=== PATIENT | female | born 1985 ===

== ENCOUNTER 2023-05-04 11:28 | Emergency (ER) | payer OTHER ==
[2023-05-04 13:19] LABS: Appearance,Urine Cloudy (Clear); Bilirubin,Urine 1+ (Negative); Blood,Urine Large (Negative); Color,Urine Dark Brown; Glucose,Urine (UA) Negative (Negative); Ketones,Urine 2+ (Negative); Leukocyte Esterase,Urine Negative (Negative); Mucus,Urine Few /hpf; Nitrite,Urine Positive (Negative); Protein,Urine 2+ (Negative); RBC,Urine >182 /hpf (0-5); Specific Gravity,Urine 1.025 (1.001-1.035); Squamous Epithelial Cell,Urine 7 /hpf (0-4); WBC,Urine 33 /hpf (0-5)
[2023-05-04 13:33] VITALS: RESP 18
[2023-05-04] MEDS ORDERED: SODIUM CHLORIDE 0.9% 1,000 ML IV ONE (13:57)
[2023-05-04] MEDS ORDERED: LEVOFLOXACIN 500MG-D5W PMX 500 MG in DEXTROSE/WATER 1 100ML.BAG IVPB STA (13:58)
--- NOTE | 2023-05-04 14:22 | ED ---
General Adult HPI - General Source: patient, RN notes reviewed, old records reviewed Mode of arrival: ambulatory Limitations: no limitations <Denny Green - Last Filed: 05/04/23 14:11> <Joey Mccoy - Last Filed: 05/04/23 19:52> - General Chief complaint: Urogenital Stated complaint: UTI Time Seen by Provider: 05/04/23 13:23 - History of Present Illness Initial comments: 38-year-old female presenting for evaluation of lower abdominal pain and dysuria. Patient is status post uterine artery embolization at [facility] in [place] for fibroid. She denies vaginal discharge per she's had minimal vaginal bleeding which she states is improving. She's had diffuse lower abdominal pain over the past several days as well as chills. (Denny Green) - Related Data Previous Rx's Medication Instructions Recorded Levofloxacin [Levaquin] 500 mg PO DAILY 1 Days #7 tab 05/04/23 Allergies Allergy/AdvReac Type Severity Reaction Status Date / Time cefazolin [From [facility]] Allergy Chest Pain Verified 05/04/23 12:18 Review of Systems ROS Other: All systems not noted in ROS Statement are negative. <Denny Green - Last Filed: 05/04/23 14:11> ROS Other: All systems not noted in ROS Statement are negative. <Joey Mccoy - Last Filed: 05/04/23 19:52> ROS Statement: Those systems with pertinent positive or pertinent negative responses have been documented in the HPI. Past Medical History Past Medical History: Hyperlipidemia Additional Past Medical History / Comment(s): fibroids History of Any Multi-Drug Resistant Organisms: None Reported Past Surgical History: Appendectomy, Uterine Ablation Past Psychological History: No Psychological Hx Reported Smoking Status: Never smoker Past Alcohol Use History: None Reported Past Drug Use History: None Reported <Denny Green - Last Filed: 05/04/23 14:11> General Exam Limitations: no limitations General appearance: alert, in no apparent distress Head exam: Present: atraumatic, normocephalic Eye exam: Present: normal appearance, PERRL ENT exam: Present: normal exam Neck exam: Present: normal inspection. Absent: tenderness, meningismus Respiratory exam: Present: normal lung sounds bilaterally. Absent: respiratory distress, wheezes Cardiovascular Exam: Present: regular rate, normal rhythm GI/Abdominal exam: Present: soft, distended, tenderness (Diffuse lower abdominal tenderness) Extremities exam: Present: normal inspection, normal capillary refill. Absent: pedal edema Neurological exam: Present: alert, oriented X3, CN II-XII intact. Absent: motor sensory deficit Psychiatric exam: Present: normal affect, normal mood Skin exam: Present: warm, dry, intact. Absent: cyanosis, diaphoretic <Denny Green Uriel - Last Filed: 05/04/23 14:11> Course Vital Signs 05/04/23 05/04/23 05/04/23 12:12 13:32 14:46 Temperature 98.7 F 98.0 F Pulse Rate 99 88 70 Respiratory 20 18 18 Rate Blood Pressure 137/86 123/78 114/72 O2 Sat by Pulse 97 97 99 Oximetry Medical Decision Making <GregngayeseniaDenny Uriel - Last Filed: 05/04/23 14:11> - Lab Data Result diagrams: 05/04/23 14:34 05/04/23 14:34 <Joey Mccoy - Last Filed: 05/04/23 19:52> - Medical Decision Making Was pt. sent in by a medical professional or institution (JAYE Nava, SLAB LIFTING ENGINEER, urgent care, hospital, or usp...) When possible be specific @ -No Did you speak to anyone other than the patient for history (EMS, parent, family, police, friend...)? What history was obtained from this source @ -No Did you review nursing and triage notes (agree or disagree)? Why? @ -I reviewed and agree with nursing and triage notes Were old charts reviewed (outside hosp., previous admission, EMS record, old EKG , old radiological studies, urgent care reports/EKG's, usp records)? Report findings @ -No old charts were reviewed Differential Diagnosis (chest pain, altered mental status, abdominal pain women, abdominal pain men, vaginal bleeding, weakness, fever, dyspnea, syncope, headache, dizziness, GI bleed, back pain, seizure, CVA, palpatations, mental health, musculoskeletal)? @ -Differential Abdominal Pain Women: Appendicitis, Cholecystitis, diverticulosis, ischemic bowel, pancreatitis, hepatitis, UTI, gastroenteritis, AAA, incarcerated hernia, bowel obstruction, constipation, inflammatory bowel, hepatitis, peptic ulcer disease, splenic infarction, perforated viscus, vulvitis, ovarian torsion, PID, kidney stone, placenta abruption, this is not meant to be an all-inclusive list EKG interpreted by me (3pts min.). @ -As above X-rays interpreted by me (1pt min.). @ -None done CT interpreted by me (1pt min.). @ -[CT the abdomen and pelvis has been ordered, results pending U/S interpreted by me (1pt. min.). @ -None done What testing was considered but not performed or refused? (CT, X-rays, U/S, labs)? Why? @ -None What meds were considered but not given or refused? Why? @ -None Did you discuss the management of the patient with other professionals (professionals i.e. , PA, SLAB LIFTING ENGINEER, lab, RT, psych nurse, social psychologist, pad tufter, teacher, classifications officer cc/cm, case finishing machine adjuster)? Give summary @ -No Was smoking cessation discussed for >3mins.? @ -No Was critical care preformed (if so, how long)? @ -No Were there social determinants of health that impacted care today? How? (H omelessness, low income, unemployed, alcoholism, drug addiction, transportation, low edu. Level, literacy, decrease access to med. care, senior living, rehab)? @ -No Was there de-escalation of care discussed even if they declined (Discuss DNR or withdrawal of care, Hospice)? DNR status @ -No What co-morbidities impacted this encounter? (DM, HTN, Smoking, COPD, CAD, Cancer, CVA, ARF, Chemo, Hep., AIDS, mental health diagnosis, sleep apnea, morbid obesity)? @ -[Recent uterine artery embolization Was patient admitted / discharged? Hospital course, mention meds given and route, prescriptions, significant lab abnormalities, going to OR and other pertinent info. @ -Patient care signed out at shift change awaiting laboratory testing and CT imaging. Signed out to Dr. Mccoy ([facility] - Lab Data Lab Results 05/04/23 05/04/23 05/04/23 Range/Units 12:41 14:34 14:34 WBC 13.7 H (3.8-10.6) k/uL RBC 4.89 (3.80-5.40) m/uL Hgb 15.2 (11.4-16.0) gm/dL Hct 44.5 (34.0-46.0) % MCV 91.0 (80.0-100.0) fL MCH 31.2 (25.0-35.0) pg MCHC 34.2 (31.0-37.0) g/dL RDW 13.4 (11.5-15.5) % Plt Count 425 (150-450) k/uL MPV 8.0 Neutrophils % 76 % Lymphocytes % 16 % Monocytes % 4 % Eosinophils % 2 % Basophils % 0 % Neutrophils # 10.4 H (1.3-7.7) k/uL Lymphocytes # 2.2 (1.0-4.8) k/uL Monocytes # 0.6 (0-1.0) k/uL Eosinophils # 0.3 (0-0.7) k/uL Basophils # 0.0 (0-0.2) k/uL Sodium 137 (137-145) mmol/L Potassium 4.0 (3.5-5.1) mmol/L Chloride 102 (98-107) mmol/L Carbon Dioxide 23 (22-30) mmol/L Anion Gap 12 mmol/L BUN 10 (7-17) mg/dL Creatinine 0.64 (0.52-1.04) mg/dL Est GFR (CKD-EPI)AfAm >90 (>60 ml/min/1.73 sqM) Est GFR (CKD-EPI)NonAf >90 (>60 ml/min/1.73 sqM) Glucose 82 (74-99) mg/dL Plasma Lactic Acid Nicola (0.7-2.0) mmol/L Calcium 10.4 H (8.4-10.2) mg/dL Magnesium 2.1 (1.6-2.3) mg/dL Total Bilirubin 0.6 (0.2-1.3) mg/dL AST 49 H (14-36) U/L ALT 44 H (4-34) U/L Alkaline Phosphatase 142 H (38-126) U/L Total Protein 8.3 H (6.3-8.2) g/dL Albumin 4.5 (3.5-5.0) g/dL Urine Color Dark Brown Urine Appearance Cloudy H (Clear) Urine pH 6.0 (5.0-8.0) Ur Specific [place] 1.025 (1.001-1.035) Urine Protein 2+ H (Negative) Urine Glucose (UA) Negative (Negative) Urine Ketones 2+ H (Negative) Urine Blood Large H (Negative) Urine Nitrite Positive H (Negative) Urine Bilirubin 1+ H (Negative) Urine Urobilinogen 2.0 (<2.0) mg/dL Ur Leukocyte Esterase Negative (Negative) Urine RBC >182 H (0-5) /hpf Urine WBC 33 H (0-5) /hpf Ur Squamous Epith Cells 7 H (0-4) /hpf Urine Mucus Few H (None) /hpf 05/04/23 Range/Units 14:34 WBC (3.8-10.6) k/uL RBC (3.80-5.40) m/uL Hgb (11.4-16.0) gm/dL Hct (34.0-46.0) % MCV (80.0-100.0) fL MCH (25.0-35.0) pg MCHC (31.0-37.0) g/dL RDW (11.5-15.5) % Plt Count (150-450) k/uL MPV Neutrophils % % Lymphocytes % % Monocytes % % Eosinophils % % Basophils % % Neutrophils # (1.3-7.7) k/uL Lymphocytes # (1.0-4.8) k/uL Monocytes # (0-1.0) k/uL Eosinophils # (0-0.7) k/uL Basophils # (0-0.2) k/uL Sodium (137-145) mmol/L Potassium (3.5-5.1) mmol/L Chloride (98-107) mmol/L Carbon Dioxide (22-30) mmol/L Anion Gap mmol/L BUN (7-17) mg/dL Creatinine (0.52-1.04) mg/dL Est GFR (CKD-EPI)AfAm (>60 ml/min/1.73 sqM) Est GFR (CKD-EPI)NonAf (>60 ml/min/1.73 sqM) Glucose (74-99) mg/dL Plasma Lactic Acid Nicola 0.8 (0.7-2.0) mmol/L Calcium (8.4-10.2) mg/dL Magnesium (1.6-2.3) mg/dL Total Bilirubin (0.2-1.3) mg/dL AST (14-36) U/L ALT (4-34) U/L Alkaline Phosphatase (38-126) U/L Total Protein (6.3-8.2) g/dL Albumin (3.5-5.0) g/dL Urine Color Urine Appearance (Clear) Urine pH (5.0-8.0) Ur Specific [place] (1.001-1.035) Urine Protein (Negative) Urine Glucose (UA) (Negative) Urine Ketones (Negative) Urine Blood (Negative) Urine Nitrite (Negative) Urine Bilirubin (Negative) Urine Urobilinogen (<2.0) mg/dL Ur Leukocyte Esterase (Negative) Urine RBC (0-5) /hpf Urine WBC (0-5) /hpf Ur Squamous Epith Cells (0-4) /hpf Urine Mucus (None) /hpf Disposition <Denny Green - Last Filed: 05/04/23 14:11> Is patient prescribed a controlled substance at d/c from ED?: No <Joey Mccoy - Last Filed: 05/04/23 19:52> Clinical Impression: Urinary tract infection Disposition: HOME SELF-CARE Condition: Good Instructions (If sedation given, give patient instructions): Urinary Tract Infection in Women (ED) Prescriptions: Levofloxacin [Levaquin] 500 mg PO DAILY 1 Days #7 tab Referrals: None,Stated [REFERRING] - 1-2 days
[2023-05-04 14:54] LABS: Basophils % (A) 0 %; Eosinophils # (A) 0.3 k/uL (0-0.7); Eosinophils % (A) 2 %; HCT 44.5 % (34.0-46.0); HGB 15.2 gm/dL (11.4-16.0); Lymphocytes # (A) 2.2 k/uL (1.0-4.8); Lymphocytes % (A) 16 %; MCH 31.2 pg (25.0-35.0); MCHC 34.2 g/dL (31.0-37.0); Monocytes # (A) 0.6 k/uL (0-1.0); Monocytes % (A) 4 %; Neutrophils # (A) 10.4 k/uL (1.3-7.7); Neutrophils % (A) 76 %; Platelet Count 425 k/uL (150-450); RBC 4.89 m/uL (3.80-5.40); RDW 13.4 % (11.5-15.5); WBC 13.7 k/uL (3.8-10.6)
[2023-05-04 15:14] LABS: ALT 44 U/L (4-34); AST 49 U/L (14-36); African American GFR (CKD) >90 (>60 ml/min/1.73 sqM); Albumin 4.5 g/dL (3.5-5.0); Alkaline Phosphatase 142 U/L (38-126); Anion Gap 12 mmol/L; Blood Urea Nitrogen 10 mg/dL (7-17); Calcium 10.4 mg/dL (8.4-10.2); Carbon Dioxide 23 mmol/L (22-30); Chloride 102 mmol/L (98-107); Glucose 82 mg/dL (74-99); Magnesium 2.1 mg/dL (1.6-2.3); Non-African American GFR(CKD) >90 (>60 ml/min/1.73 sqM); Sodium 137 mmol/L (137-145); Total Bilirubin 0.6 mg/dL (0.2-1.3); Total Protein 8.3 g/dL (6.3-8.2)
--- NOTE | 2023-05-04 15:52 | CT ---
EXAMINATION TYPE: CT abdomen pelvis w con CT DLP: 815.5 mGycm, Automated exposure control for dose reduction was used. DATE OF EXAM: 05/04/2023 3:45 PM COMPARISON: None. CLINICAL INDICATION:Female, 38 years old with history of lower ab pain/recent uterine artery emboliza tion; lower ab pain/recent uterine artery embolization TECHNIQUE: Axial CT of the abdomen and pelvis. Sagittal and coronal reformats were created on a [employer] workstation. Contrast used:100ml mL of Isovue 300 with IV Contrast, (none if empty) Oral contrast used: without Oral Contrast (none if empty) FINDINGS: LOWER CHEST: Unremarkable ABDOMEN LIVER: Unremarkable GALLBLADDER AND BILE DUCTS: Unremarkable. PANCREAS: Unremarkable. SPLEEN: Unremarkable. ADRENAL GLANDS: Unremarkable. KIDNEYS AND URETERS: No evidence of hydronephrosis or renal calculus. The ureters are unremarkable. PELVIS BLADDER: Unremarkable REPRODUCTIVE: The uterus demonstrates an enlarged fibroid in the fundus measuring up to 10.0 x 8.9 x 9.6 cm. There is scattered gas within this fibroid likely secondary to uterine artery embolization. ABDOMEN & PELVIS STOMACH AND BOWEL: No evidence of bowel obstruction. PERITONEUM/RETROPERITONEUM: No evidence of pneumoperitoneum or free fluid. VASCULATURE: No evidence of aortic aneurysm. MUSCULOSKELETAL: No acute osseous abnormalities LYMPH NODES: No gross evidence for lymphadenopathy. SOFT TISSUE/ABDOMINAL WALL: Fat-containing umbilical hernia. IMPRESSION: Sequela of uterine artery embolization with large fibroid with gas within the liver itself. No organi zed fluid collection or free air definitively visualized of the abdomen.
[2023-05-04] MEDS ORDERED: MORPHINE SULFATE 4 MG/ML SYRINGE IV STA (18:34)
[2023-05-04] MEDS ORDERED: ACETAMINOPHEN TAB 325 MG TAB PO STA (18:38)
[2023-05-04 19:59] VITALS: BP 109/78; PULSE 97; TEMP 98.2
== END 2023-05-04 20:49 | disposition home or self-care (01) ==
LOC: EC 11:28
DX: N39.0 Urinary tract infection, site not specified (principal); Z88.8 Allergy status to other drugs, medicaments and biological substances
CPT/HCPCS: 36415; 80053; 83605; 83735; 85025; 81001; 87040; 87086; 74177; 99284; 96365; 96366 ×3; J1956; Q9967; 96360; 96361

== ENCOUNTER → 2023-07-19 | Outpatient (CLI) | payer OTHER ==
--- NOTE | 2023-07-24 17:26 | MR ---
EXAM: MR hand RT wo con DATE OF EXAM: 07/19/2023 COMPARISON: Right hand radiograph 07/20/2022 HISTORY: Right hand, tips of 1-3 digit pain TECHNIQUE: Multiplanar, multisequence images of the right hand were acquired without contrast. FINDINGS: BONES/JOINTS: Normal bone marrow signal. Joints are normal in alignment with normal articular cartila ge. No joint effusion. LIGAMENTS: Interphalangeal capsular ligamentous complexes are normal. TENDONS: Flexor tendons are normal. Extensor tendons are normal. SOFT TISSUES: Along the ulnar aspect of the first digit distal phalanx, there is a circumscribed 6 x 4 x 7 mm low T1 hyperintense T2 signal structure with no surrounding soft tissue or bone marrow edema ; this abuts the ulnar-sided nail bed, appears discrete from the flexor tendon. Tiny area of cortical thinning involving the adjacent distal phalanx. NEUROVASCULAR: Visualized neurovascular structures are normal. OTHER: Normal. IMPRESSION: 7 mm structure adjacent to the ulnar aspect first digit distal phalanx. Findings favor a glomus tumor , differential diagnosis includes epidermal inclusion cyst, considered less likely.
== END | disposition home or self-care (01) ==
LOC: RADMRIMAIN 06:25
PROVIDERS: ATTEND Orthopaedic Surgery Hand Surgery
DX: M79.641 Pain in right hand (principal)

== ENCOUNTER 2023-08-03 08:46 | Day surgery (SDC) | payer OTHER ==
[2023-07-29 10:49] VITALS: BMI 28.3
--- NOTE | 2023-08-02 08:45 | P.HPOR ---
History of Present Illness H&P Date: 08/02/23 Subjective: This is a 37 year old female that presents today for follow up evaluation regarding a 2 year history of right thumb pain and electrical-like shock sensations that travel around the tip of the thumb. She states that she feels a little ball on the ulnar aspect of the thumb that appeared 2 years ago and ever since she has had extreme sensitivity over that area. She denies any inciting event or injury. Physical Examination: RUE: AIN/PIN/Radial/Ulnar/Median motor intact. Radial/Ulnar/Median SILT. 2+/4 Radial/Ulnar pulses palpated. 5/5 APB, 5/5 FDI. Negative Finkelsteins, negative CMC grind, negative Durkan's compression. 5 mm round subcutaneous mass present at the ulnar portion of the thumb distal phalanx. Positive Tinel's over the soft tissue mass. Nontender palpation over the thumb A1 emery. Imaging: X-Rays of the right hand 3 view reviewed from prior office visit demonstrate no acute abnormality. MRI of the right hand on 07/19/23 demonstrates a [id number] mass along the ulnar aspect of the thumb distal phalanx with tiny area of corticla thinning involving the adjacent distal phalanx. Impression: 1.) Right thumb soft tissue mass. 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 MRI findings were discussed. There is no abvious mass in the index or middle fingers but there is a mass concerning for potential glomus tumor in the thumb. She would like to proceed with surgical excision of the right thumb soft tissue mass. Risks and benefits of surgery including bleeding, infection, damage to surrounding tissue, need for further surgery, residual numbness were discussed and the patient wished to go forward with surgery. The patient is agreeable with this plan CC: Dr. Jazmin KELLER -Eugene Davis DO Orthopedic Hand/Upper Extremity Surgeon Past Medical History Past Medical History: Hyperlipidemia Additional Past Medical History / Comment(s): fibroids History of Any Multi-Drug Resistant Organisms: None Reported Past Surgical History: Appendectomy, Uterine Ablation Past Anesthesia/Blood Transfusion Reactions: No Reported Reaction Past Psychological History: No Psychological Hx Reported Smoking Status: Never smoker Past Alcohol Use History: None Reported Past Drug Use History: None Reported - Past Family History Mother Family Medical History: No Reported History Medications and Allergies Home Medications Medication Instructions Recorded Confirmed Type Atorvastatin [Lipitor] 40 mg PO HS 07/29/23 07/29/23 History Allergies Allergy/AdvReac Type Severity Reaction Status Date / Time cefazolin [From [facility]] Allergy tight Verified 07/29/23 10:23 chest, difficulty breathing Physical Examination Osteopathic Statement: *. No significant issues noted on an osteopathic structural exam other than those noted in the History and Physical/Consult.
[~2023-08-03 08:46] MED LIST: CLINDAMYCIN 900 MG in DEXTROSE 5% IN WATER 50 ML IVPB PRN; DEXAMETHASONE SOD PHOSPHATE 4 MG/ML 1 ML VIAL IV ONE; HYDROmorphone 0.5 MG/0.5 ML SYRINGE IVP PRN; LACTATED RINGERS 1,000 ML IV SCH; LIDOCAINE 1% (10MG/ML) FOR IV START INTRADERMA PRN; MIDAZOLAM 2 MG/2 ML VIAL IV PRN; ONDANSETRON 4 MG/2 ML VIAL IVP ONE
[2023-08-03 09:31] VITALS: TEMP 97.3
[2023-08-03] MEDS ORDERED: fentaNYL (PF) 50 MCG/ML 2 ML AMP ONE (09:33)
[2023-08-03] MEDS ORDERED: LIDOCAINE 1% INJ 10MG/ML (20 ML MDV) ONE (09:33)
[2023-08-03] MEDS ORDERED: MIDAZOLAM 2 MG/2 ML VIAL ONE (09:33)
[2023-08-03] MEDS ORDERED: PROPOFOL 10 MG/ML 20 ML VIAL IV ONE (09:33)
[2023-08-03] MEDS ORDERED: BUPIVACAINE (PF) 0.5% 30 ML VIAL SQ ONE (09:41)
[2023-08-03] MEDS ORDERED: LIDOCAINE 2% INJ 20 MG/ML SQ ONE (09:41)
--- NOTE | 2023-08-03 10:02 | P.OP ---
Date of Procedure: 08/03/23 Preoperative Diagnosis: Right thumb soft tissue mass Postoperative Diagnosis: Right thumb soft tissue mass Procedure(s) Performed: Right thumb soft tissue mass excision, 6x8mm Anesthesia: MAC Surgeon: Eugene Davis Estimated Blood Loss (ml): 0 Pathology: other (Right thumb soft tissue mass) Condition: stable Disposition: PACU Description of Procedure: This is a 38 year old female who presents today for a right thumb soft tissue mass excision. Risks and benefits of surgery were discussed with the patient including bleeding, damage to surrounding tissue, infection, need for further surgery as well as risks of anesthesia including pulmonary embolism and even and the patient wished to proceed with surgical intervention. The patient was seen in the pre-operative area by myself. Consent and H&P were completed and updated. The correct extremity was marked in the pre-operative area by myself and all other questions were answered. Operative Narrative: The patient was brought to the operating room by the department of anesthesia. They remained on the portable stretcher and a rolling hand table was brought to the side of the operative extremity. Pre-operative time out was performed indicating the correct patient, procedure and laterality. All in the room agreed. Pre-operative antibiotics were given prior to skin incision. The patient was then drifted off to sleep by the department of anesthesia. Digital block was performed with 7cc's of 0.5% Lidocaine and 1% lidocaine in a 50:50 mixture. A nonsterile tourniquet was then applied to the operative extremity and the right upper extremity was then prepped and draped in normal sterile fashion. The operative extremity was the exsanguinated with an esmarch bandage and the tourniquet was inflated to 250mmHg. Longitudinal incision was made along the ulnar boarder of the thumb distal phalanx. Blunt dissection was taken down through subcutaneous tissues. A round white 6x8mm mass was identified near the distal phalanx cortex just ulnar to the FPL insertion which was identified and preserved. The mass was then sharpley excised with a 15 blade scalpel. The wound was then closed with 4-0 nylon suture. Adapatic, 4x4s, cast padding and pritesh wrap was applied. Tourniquet was let down and the thumb had immediate perfusion. The patient was then woken by the department of anesthesia and transferred to PACU in stable condition. Eugene Davis D.O. Orthopedic Hand/Upper Extremity Surgeon
[2023-08-03] MEDS ORDERED: LACTATED RINGERS 1,000 ML IV ONE (10:32)
[2023-08-03 11:04] VITALS: BP 103/63; PULSE 65
[2023-08-03 11:06] VITALS: RESP 15
== END 2023-08-03 11:21 | disposition home or self-care (01) ==
LOC: OR 08:46
PROVIDERS: ATTEND Orthopaedic Surgery Hand Surgery
DX: D18.01 Hemangioma of skin and subcutaneous tissue (principal); E78.5 Hyperlipidemia, unspecified; Z90.49 Acquired absence of other specified parts of digestive tract; Z98.890 Other specified postprocedural states; Z88.1 Allergy status to other antibiotic agents; Z79.899 Other long term (current) drug therapy
CPT/HCPCS: 26111; 81025; 88305; J2001 ×2; J2250; J3010; J2704; J0736; J0665

== ENCOUNTER → 2024-05-30 | Outpatient (CLI) | payer OTHER ==
--- NOTE | 2024-05-30 12:46 | FL ---
Exam Date: 05/30/2024 12:29 PM. Modified barium swallow for dysphagia. Consistencies administered: Various consistency of barium. Fluoro time: 0.33 No images were sent to PACS. Please see speech pathology report. DAP: Not reported mGym2 Gycm2 ernesto and dr. pelaez fl time 0.33 mins pt given all consistencies. 2weeks ago 1 incident of choking and feeling throat closed off. pressure pain right ear to throat [facility], , 05/30/2024 12:44 PM
== END | disposition home or self-care (01) ==
LOC: RADFLMAIN 11:11
PROVIDERS: ATTEND Internal Medicine
DX: K22.4 Dyskinesia of esophagus (principal)
CPT/HCPCS: 74230

== ENCOUNTER → 2024-06-04 | Outpatient (CLI) | payer OTHER ==
[2024-06-04 09:07] LABS: Appearance,Urine Cloudy (Clear); Bacteria,Urine Occasional /hpf; Bilirubin,Urine Negative (Negative); Blood,Urine Moderate (Negative); Color,Urine Colorless; Glucose,Urine (UA) Negative (Negative); Ketones,Urine Negative (Negative); Leukocyte Esterase,Urine Negative (Negative); Mucus,Urine Rare /hpf; Nitrite,Urine Negative (Negative); PH, Urine 5.5 (5.0-8.0); Protein,Urine Negative (Negative); RBC,Urine 1 /hpf (0-5); Specific Gravity,Urine 1.021 (1.001-1.035); Squamous Epithelial Cell,Urine 7 /hpf (0-4); Urobilinogen,Urine <2.0 mg/dL (<2.0); WBC,Urine 2 /hpf (0-5)
[2024-06-04 10:27] LABS: Creatinine,Urine Random 147.4 mg/dL
[2024-06-04 11:13] LABS: Basophils # (A) 0.06 X 10*3/uL (0.00-0.10); Basophils % (A) 0.7 %; Eosinophils % (A) 3.7 %; HCT 44.1 % (37.2-46.3); HGB 14.6 g/dL (12.0-15.0); Lymphocytes # (A) 2.93 X 10*3/uL (0.90-5.00); Lymphocytes % (A) 35.9 %; MCH 29.8 pg (27.0-32.0); MCHC 33.1 g/dL (32.0-37.0); Mean Platelet Volume 10.5 FL (9.5-12.2); Monocytes # (A) 0.51 X 10*3/uL (0.20-1.00); Monocytes % (A) 6.3 %; NRBC Per 100 WBC 0 X 10*3/uL (0.00-0.01); Neutrophils # (A) 4.34 X 10*3/uL (1.80-7.70); Neutrophils % (A) 53.2 %; Platelet Count 347 X 10*3/uL (140-440); RDW 13.7 % (11.5-14.5); WBC 8.16 X 10*3/uL (4.50-10.00)
[2024-06-04 11:30] LABS: Microalbumin Creatinine Ratio <8 mg/g Cr (0-30)
[2024-06-04 11:40] LABS: Erythrocyte Sedimentation Rate 15 mm/Hr (0-20)
[2024-06-04 11:44] LABS: Thyroid Peroxidase Antibodies 13.6 U/mL (0.0-33.0)
[2024-06-04 11:46] LABS: ALT 19 U/L (8-44); AST 22 U/L (13-35); Albumin 4.5 g/dL (3.8-4.9); Albumin/Globulin Ratio 1.61 Ratio (1.60-3.17); Alkaline Phosphatase 70 U/L (41-126); BUN/Creat Ratio 21.43 Ratio (12.00-20.00); C Reactive Protein <0.30 mg/dL (0.00-0.80); Calcium 9.4 mg/dL (8.7-10.3); Carbon Dioxide 21.8 mmol/L (21.6-31.8); Chloride 107 mmol/L (96-109); Chol/HDL Ratio 6.78 Ratio; Creatine Kinase 85 U/L (26-186); Globulin 2.8 g/dL (1.6-3.3); Glucose 101 mg/dL (70-110); LDL Cholesterol,Calculated 178.5 mg/dL (0.0-131.0); Potassium 4.5 mmol/L (3.5-5.5); Sodium 139 mmol/L (135-145); Total Bilirubin 0.2 mg/dL (0.3-1.2); Total Protein 7.3 g/dL (6.2-8.2)
[2024-06-04 11:47] LABS: T4, Free (Free Thyroxine) 1.07 ng/dL (0.80-1.80)
== END | disposition home or self-care (01) ==
LOC: LABWHC1 07:54
PROVIDERS: ATTEND Internal Medicine
DX: E78.5 Hyperlipidemia, unspecified (principal); E87.8 Other disorders of electrolyte and fluid balance, not elsewhere classified; E03.9 Hypothyroidism, unspecified; R80.9 Proteinuria, unspecified
CPT/HCPCS: 36415; 80053; 80061; 81001; 82043; 82306; 82533; 82550; 82570; 84156; 84439; 84443; 85025; 85652; 86140; 86376; 86800